=== PATIENT | male | born 1970 | race Caucasian/White ===

== ENCOUNTER 2016-05-20 10:07 | Emergency (ER) | payer OTHER, MEDICAID ==
[2016-05-20 10:20] VITALS: RESP 16; TEMP 97.9
--- NOTE | 2016-05-20 10:53 | CPEKG ---
Heart Rate: 62 RR Interval: 968 P-R Interval: 164 QRSD Interval: 110 QT Interval: 416 QTC Interval: 423 P Wilson: 76 QRS Wilson: 98 T Wave Wilson: 40 EKG Severity - ABNORMAL ECG - EKG Impression: SINUS RHYTHM EKG Impression: NONSPECIFIC INTRAVENTRICULAR CONDUCTION DELAY Electronically Signed By: Ilan Trinh 20-May-2016 15:04:56
[2016-05-20 11:05] LABS: % IMMATURE GRANULYOCYTES 0.4 % (0.0-1.1); ABSOLUTE IMMATURE GRANULOCYTES 0.03 10^3/uL (0.00-0.10); ADD DIFF? NO; ADD MORPH? NO; ADD SCAN? NO; ATYPICAL LYMPHOCYTE FLAG 40 (0-99); FRAGMENT RBC FLAG 0 (0-99); HEMATOCRIT 44.7 % (40.0-51.0); LEFT SHIFT FLG 0 (0-99); LIPEMIA HEMOLYSIS FLAG 90 (0-99); MEAN CELL HEMOGLOBIN 32.9 pg (27.9-34.1); MEAN CELL HEMOGLOBIN CONCENTR. 35.8 g/dL (32.4-36.7); MEAN CELL VOLUME 91.8 fL (81.5-99.8); MEAN PLATELET VOLUME 10.2 fL (8.7-11.7); PLATELET CLUMPS FLAG 10 (0-99); PLATELET COUNT 216 10^3/uL (150-400); RED BLOOD CELL COUNT 4.87 10^6/uL (4.40-6.38)
--- NOTE | 2016-05-20 11:16 | EDPHY ---
H & P Stated Complaint: ABD PAIN Time Seen by Provider: 05/20/16 11:13 - Personal History Current Tetanus/Diphtheria Vaccine: Yes Tetanus Vaccine Date: 2012 - Medical/Surgical History Hx Asthma: No Hx Chronic Respiratory Disease: No Hx Diabetes: No Hx Cardiac Disease: No Hx Renal Disease: No Hx Cirrhosis: No Hx Alcoholism: No Hx HIV/AIDS: No Hx Splenectomy or Spleen Trauma: No Other PMH: SURG NECK FUSION IN CERVICAL AREA. 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 Chronic pain, parsonage puente syndrome - Social History Smoking Status: Former smoker Constitutional: Initial Vital Signs Temperature (C) 36.6 C 05/20/16 10:15 Heart Rate 88 05/20/16 10:15 Respiratory Rate 16 05/20/16 10:15 Blood Pressure 138/98 H 05/20/16 10:15 O2 Sat (%) 96 05/20/16 10:15 O2 Delivery Mode Nasal Cannula O2 (L/minute) 2 Allergies/Adverse Reactions: No Known Allergies Allergy (Verified 11/10/13 14:47) Home Medications: Medication Instructions Recorded Diazepam [Valium 5 MG (*)] 5 mg PO TID PRN 10/26/13 Pregabalin [Lyrica 75mg (*)] 75 mg PO HS 10/26/13 Mirtazapine [Remeron] 15 mg PO HS 01/04/16 Docusate Sodium [Colace 100 MG (*)] 100 mg PO BID #30 cap 01/05/16 Ibuprofen [Motrin (*)] 600 mg PO Q8 #30 tab 01/05/16 Ondansetron Odt [Zofran Odt 4 mg 4 - 8 mg PO Q4 PRN #20 tab 01/05/16 (*)] Zolpidem Tartrate [Ambien 5MG (*)] 5 - 10 mg PO HS PRN #10 tab 01/05/16 oxyCODONE CR [Oxycontin] 10 mg PO BID #30 tab 01/05/16 oxyCODONE IR [Oxycodone Ir (*)] 10 mg PO Q4HRS PRN #60 tab 01/05/16 Medical Decision Making ED Course/Re-evaluation: CHIEF COMPLAINT: "I have a lot of pain throughout my whole body" HISTORY OF PRESENT ILLNESS: The patient is a 45 y/o male, with a history of Parsonage Puente syndrome, complaining of "pain everywhere." He reports he's had sharp epigastric pain that feels like "severe hunger pain, twisting, with sharp needling pain in my bowels" for the past 2 months. His symptoms are associated with loose stools. He also complains of ongoing shoulder pain, worse since a fall at his PT appointment this past week. He has baseline weakness in his left arm and denies changes to this. REVIEW OF SYSTEMS: A 10 point review of systems was performed and is negative with the exception of the elements mentioned in the history of present illness. PHYSICAL EXAM: HR, BP, O2 Sat, RR. Temp noted General Appearance: Alert, well hydrated, appropriate, and non-toxic appearing. Head: Atraumatic without scalp tenderness or obvious injury Eyes: Pupils equal, round, reactive to light and accommodation, EOMI, no trauma , no injection. Ears: Clear bilaterally, no perforation, normal landmarks Nose: Atraumatic, no rhinorrhea, clear. Throat: There is no erythema or exudates, no lesions, normal tonsils, mucus membranes moist. Neck: Supple, 2+ carotid upstroke, nontender, no lymphadenopathy. Respiratory: No retractions, no distress, no wheezes, and no accessory muscle use. Lungs are clear to auscultation bilaterally. Cardiovascular: Regular rate and rhythm, no murmurs, rubs, or gallops. Bilateral carotid, radial, dorsalis pedis, and posterior tibial pulses intact. Good capillary refill all extremities. Gastrointestinal: Abdomen is soft, nontender, non-distended, no masses, no rebound, no guarding, no peritoneal signs. Musculoskeletal: Normal active ROM of all extremities, atraumatic. Neurological: Alert, appropriate, and interactive. The patient has normal DTRs and non-focal cranial nerves, motor, sensory, and cerebellar exam. Baseline left arm weakness. Skin: No rashes, good turgor, no nodules on palpation. Past medical history: Parsonage Puente Syndrome Past surgical history: Pyloric valve replacement, neck fusion 3 years ago Family history: Noncontributory Social history: Dr. Tim Pyle DIAGNOSTICS/PROCEDURES/CRITICAL CARE TIME: The 12 lead EKG was interpreted by myself. EKG shows sinus rhythm rate 62. See hard copy and/or "tracemaster" electronic copy for interpretation. Study: CT of the Abdomen Indication: Pain Results: CT scan of the abdomen was obtained. The results of the study are unremarkable for any acute process The study was read by the radiologist, Dr. Rashad Patterson. I viewed the images myself on the PACS system. DIFFERENTIAL DIAGNOSIS: The differential diagnosis for the patient's abdominal pain included but was not limited to appendicitis, cholecystitis, hernias, testicular torsion, gastritis, and urinary tract infection. MEDICAL DECISION MAKING: This is a 45 y/o male with a history of Parsonage Puente Syndrome complaining primarily of 2 months of abdominal pain. He has not had imaging performed for this complaint yet. His pain is not reproducible on exam. IV established. Labs drawn including CBC, CHEM, lipase, LFTs. 1mg IV Dilaudid administered. Patient placed on radiographer cardiac catheterization. Plan for abdominal CT. This patient has 2 months of intermittent abdominal pain. His laboratory studies including CBC, chemistry, liver, lipase are all unremarkable in addition to his CT scan of the abdomen. He will follow up with his regular doctor. - Data Points Laboratory Results: Laboratory Results 05/20/16 10:20 05/20/16 10:20 05/20/16 10:20 WBC 8.28 10^3/uL (3.80-9.50) RBC 4.87 10^6/uL (4.40-6.38) Hgb 16.0 g/dL (13.7-17.5) Hct 44.7 % (40.0-51.0) MCV 91.8 fL (81.5-99.8) MCH 32.9 pg (27.9-34.1) MCHC 35.8 g/dL (32.4-36.7) RDW 12.0 % (11.5-15.2) Plt Count 216 10^3/uL (150-400) MPV 10.2 fL (8.7-11.7) Neut % (Auto) 60.4 % (39.3-74.2) Lymph % (Auto) 31.0 % (15.0-45.0) [place] % (Auto) 6.8 % (4.5-13.0) Eos % (Auto) 0.8 % (0.6-7.6) Baso % (Auto) 0.6 % (0.3-1.7) Nucleat RBC Rel Count 0.0 % (0.0-0.2) Absolute Neuts (auto) 5.00 10^3/uL (1.70-6.50) Absolute Lymphs (auto) 2.57 10^3/uL (1.00-3.00) Absolute Monos (auto) 0.56 10^3/uL (0.30-0.80) Absolute Eos (auto) 0.07 10^3/uL (0.03-0.40) Absolute Basos (auto) 0.05 10^3/uL (0.02-0.10) Absolute Nucleated RBC 0.00 10^3/uL (0-0.01) Immature Gran % 0.4 % (0.0-1.1) Immature Gran # 0.03 10^3/uL (0.00-0.10) Sodium 142 mEq/L (134-144) Potassium 4.0 mEq/L (3.5-5.2) Chloride 108 mEq/L (97-110) Carbon Dioxide 23 mEq/l (22-31) Anion Gap 11 mEq/L (8-16) BUN 14 mg/dL (7-23) Creatinine 0.8 mg/dL (0.7-1.3) Estimated GFR > 60 Glucose 99 mg/dL (70-100) Calcium 9.2 mg/dL (8.5-10.4) Total Bilirubin 0.8 mg/dL (0.1-1.4) Conjugated Bilirubin 0.3 mg/dL (0.0-0.5) Unconjugated Bilirubin 0.5 mg/dL (0.0-1.1) AST 17 IU/L (17-59) ALT 28 IU/L (21-72) Alkaline Phosphatase 86 IU/L (38-126) Total Protein 7.3 g/dL (6.3-8.2) Albumin 4.2 g/dL (3.5-5.0) Lipase 108.0 IU/L (23-300) Medications Given: Discontinued Medications Hydromorphone HCl (Dilaudid) 1 mg IVP EDNOW ONE Stop: 05/20/16 11:36 Last Admin: 05/20/16 11:40 Dose: 1 mg Departure - Departure Disposition: Home, Routine, Self-Care Clinical Impression: Chronic abdominal pain Condition: Good Instructions: Chronic Abdominal Pain (ED) Referrals: Tim Pyle MD [Primary Care Provider] - As per Instructions Luke Nayak MD [Medical Doctor] - 5-7 days, call for appt. Report Scribed for: Ilan Trinh Report Scribed by: Kimberly Saldaña Date of Report: 05/20/16 Time of Report: 11:29
[2016-05-20 11:21] LABS: ALANINE AMINOTRANSFERASE 28 IU/L (21-72); ALBUMIN 4.2 g/dL (3.5-5.0); ALKALINE PHOSPHATASE 86 IU/L (38-126); ANION GAP 11 mEq/L (8-16); ASPARTATE AMINOTRANSFERASE 17 IU/L (17-59); BILIRUBIN,TOTAL 0.8 mg/dL (0.1-1.4); BILIRUBIN-CONJUGATED 0.3 mg/dL (0.0-0.5); BILIRUBIN-UNCONJUGATED 0.5 mg/dL (0.0-1.1); CALCIUM 9.2 mg/dL (8.5-10.4); CARBON DIOXIDE 23 mEq/l (22-31); CHLORIDE 108 mEq/L (97-110); CREATININE 0.8 mg/dL (0.7-1.3); GLOMERULAR FILTRATION RATE > 60; GLUCOSE 99 mg/dL (70-100); SODIUM 142 mEq/L (134-144); TOTAL PROTEIN 7.3 g/dL (6.3-8.2)
[2016-05-20] MEDS ORDERED: IOPAMIDOL (ISOVUE-300) 100 ML BTL IV ONE (11:31)
[2016-05-20] MEDS ORDERED: HYDROmorphONE/DILAUDID 1 MG/ML SYR IVP ONE (11:35)
[2016-05-20] MEDS ORDERED: HYDROmorphONE/DILAUDID 1 MG/ML SYR ONE (11:36)
[2016-05-20 12:08] VITALS: PULSE 75; O2SAT 96
--- NOTE | 2016-05-20 12:21 | CT ---
CT Scan of the Abdomen and Pelvis (With Contrast) May 20, 2016 at 1154 Hours Indication: Epigastric pain for two months. Technique: 95 mL of Isovue 300 were given intravenously by machine power injection. [facility] was performed from the diaphragm to the symphysis pubis. Dose reduction techniques w ere utilized. Findings Abdomen: Partially calcified round pulmonary nodules seen at the left lower lobe, probably representi ng old granulomatous disease, measuring 9 mm. No evidence for pleural effusion. Liver is unremarkable . Gallbladder is unremarkable. Pancreas is normal in size and appearance. Spleen is unremarkable. Bot h adrenal glands are normal in size and appearance. Both kidneys enhance normally without evidence for mass or hydronephrosis. No significant abdominal l ymphadenopathy. Pelvis: Moderate stool is seen in the colon. Mild diverticulosis in the sigmoid colon without evidenc e for diverticulitis. No CT findings for appendicitis. No evidence for small bowel obstruction. No si gnificant free fluid in the pelvis. Degenerative change is seen in the lumbar spine. Mild chronic ant erior wedge compression deformity is seen of L1, L3, and L4 vertebral bodies. Impression: 1. Moderate constipation. Mild diverticulosis without evidence for diverticulitis. 2. Degenerative change lumbar spine. Mild chronic anterior wedge compression deformity of L1, L3, and L4 vertebral bodies. 3. Probable partial calcified granuloma left lower lobe. Results called to Dr. Ilan Trinh.
[2016-05-20 12:46] VITALS: BP 128/87
== END 2016-05-20 12:45 | disposition home or self-care (01) ==
DX: R10.13 Epigastric pain (principal); G89.29 Other chronic pain; Z87.891 Personal history of nicotine dependence
CPT/HCPCS: 74177; 93005; 96374; 99285; J1170; Q9967

== ENCOUNTER 2016-06-04 12:36 | Day surgery (SDC) | payer OTHER, MEDICAID ==
[2016-06-04] MEDS ORDERED: PROPOFOL/EMULSION 500 MG/50 ML BOTTLE IV ONE (13:28)
[2016-06-04] MEDS ORDERED: LIDOCAINE 2% 5 ML SDV ONE (13:28)
[2016-06-04] MEDS ORDERED: fentaNYL 100 MCG/2 ML INJ ONE (14:38)
[2016-06-04] MEDS ORDERED: DIAZEPAM 5 MG TAB ONE (14:49)
[2016-06-04] MEDS ORDERED: BACLOFEN 10 MG TAB PO ONE (15:00)
--- NOTE | 2016-06-04 23:56 | GPN ---
[f rep st] PROCEDURE NOTE DATE OF PROCEDURE: 06/04/2016 PROCEDURE: Colonoscopy with biopsy. INDICATION: The patient is a 45-year-old male who presents for evaluation of blood in his stool as well as a change in bowel habits. CONSENT: Risks, benefits, and alternatives of the procedure were discussed in great detail with the patient. Risks of infection, bleeding, perforation, and sedation were discussed. All questions were answered and informed consent was obtained. MEDICATIONS: Propofol. Please see anesthesia records for details. ESTIMATED BLOOD LOSS: Insignificant. COLONOSCOPIC EVALUATION: A rectal exam was done and small internal hemorrhoids were felt. The scope was introduced into the rectum and advanced to the cecum, where the ileocecal valve and appendiceal orifice were seen. The terminal ileum was intubated and was normal in appearance. The colonic mucosa was carefully examined both on insertion and withdrawal of the scope. The quality of the prep was good. No mass lesions or polyps were noted. The patient has scattered diverticula throughout the sigmoid to the ascending colon. Random biopsies were taken throughout the colon. IMPRESSION: 1. Scattered diverticulosis. 2. Suspect his bleeding is hemorrhoidal. RECOMMENDATIONS: 1. Follow up on biopsy results. 2. Fiber supplementation. 3. Follow up in the office in 6 weeks. 4. Continue antispasmodic. /[id number]/MODL MTDD
--- NOTE | 2016-06-04 23:56 | GPN ---
[f rep st] PROCEDURE NOTE DATE OF PROCEDURE: 06/04/2016 PROCEDURE: Esophagogastroduodenoscopy with biopsy. INDICATION: The patient is a 45-year-old male who presents for evaluation of epigastric abdominal pain as well as a change in bowel habits. He presents for further evaluation. CONSENT: Risks, benefits, and alternatives of the procedure were discussed in great detail with the patient. Risk of infection, bleeding, perforation, and sedation were discussed. All questions answered. Informed consent obtained. MEDICATIONS: Propofol. Please see Anesthesiology record for details. ESTIMATED BLOOD LOSS: Insignificant. ESOPHAGOGASTRODUODENOSCOPY EXAMINATION: The Olympus upper endoscope was introduced into the mouth and advanced to the esophagus. The proximal, mid and distal esophagus were normal in appearance. The stomach was entered and closely examined, including retroflexed view of the angularis, cardia, and fundus. The patient was noted to have a small hiatal hernia. The mucosa of the whole examined stomach was erythematous in a patchy distribution and biopsies were taken. The duodenal bulb and 2nd portion of the duodenum were normal in appearance. Biopsies were taken to rule out celiac sprue. IMPRESSION: 1. No obvious cause of his abdominal pain noted. 2. Gastritis, status post biopsy. 3. Biopsy for celiac sprue. RECOMMENDATIONS: 1. Follow up on biopsy results. 2. Proceed with colonoscopy. 3. Continue trial of PPI therapy and antispasmodic. 4. More recommendations on colonoscopy report. /[id number]/MODL MTDD
== END 2016-06-04 16:10 | disposition home or self-care (01) ==
LOC: FSGY 12:36
PROVIDERS: ATTEND Internal Medicine Gastroenterology
PROC: 0DB68ZX Excision of Stomach, Via Natural or Artificial Opening Endoscopic, Diagnostic (ICD-10-PCS; principal; 2016-06-04 14:00)
PROC: 0DB98ZX Excision of Duodenum, Via Natural or Artificial Opening Endoscopic, Diagnostic (ICD-10-PCS; principal; 2016-06-04 14:00)
PROC: 0DBE8ZX Excision of Large Intestine, Via Natural or Artificial Opening Endoscopic, Diagnostic (ICD-10-PCS; principal; 2016-06-04 14:00)
DX: R10.13 Epigastric pain (principal); R19.4 Change in bowel habit; K92.1 Melena; K57.30 Diverticulosis of large intestine without perforation or abscess without bleeding
CPT/HCPCS: J2704; J3010

== ENCOUNTER 2016-08-10 10:42 | Emergency (ER) | payer OTHER, MEDICAID ==
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
[2016-08-10] MEDS ORDERED: HYDROmorphONE/DILAUDID 1 MG/ML SYR ONE (11:10)
[2016-08-10] MEDS ORDERED: HYDROmorphONE/DILAUDID 1 MG/ML SYR IVP ONE ×3 (11:15→15:08)
[2016-08-10] MEDS ORDERED: DIAZEPAM 10 MG/2 ML SYR IVP ONE ×3 (11:53→15:08)
[2016-08-10] MEDS ORDERED: DIAZEPAM 10 MG/2 ML SYR ONE (15:02)
[2016-08-10 17:32] VITALS: BP 126/96; PULSE 74; RESP 18; TEMP 98.4; O2SAT 97
== END 2016-08-10 17:30 | disposition home or self-care (01) ==
LOC: EDUNIT#
DX: S19.9XXA Unspecified injury of neck, initial encounter (principal); M48.02 Spinal stenosis, cervical region; Z87.891 Personal history of nicotine dependence; W18.09XA Striking against other object with subsequent fall, initial encounter
CPT/HCPCS: 72141; 96374; 96375; 96376; 99285; J1170

== ENCOUNTER 2017-01-14 12:40 | Emergency (ER) | payer OTHER, MEDICAID ==
[2017-01-14 12:45] VITALS: RESP 18; TEMP 98.2
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
[2017-01-14] MEDS ORDERED: IOPAMIDOL (ISOVUE 370) 100 ML BTL IV ONE (13:16)
[2017-01-14] MEDS ORDERED: HYDROmorphONE/DILAUDID 1 MG/ML INJ IVP ONE (14:51)
[2017-01-14] MEDS ORDERED: DIAZEPAM 10 MG/2 ML SYR IVP ONE (14:51)
[2017-01-14 18:07] VITALS: BP 138/84; PULSE 64; O2SAT 96
== END 2017-01-14 18:31 | disposition home or self-care (01) ==
LOC: EDUNIT#
DX: S16.1XXA Strain of muscle, fascia and tendon at neck level, initial encounter (principal); S20.211A Contusion of right front wall of thorax, initial encounter; Z87.891 Personal history of nicotine dependence; V00.818A Other accident with wheelchair (powered), initial encounter
CPT/HCPCS: 82947-QW; 96374; J1170; Q9967

== ENCOUNTER 2017-07-30 23:31 | Emergency (ER) | payer OTHER, MEDICAID ==
--- NOTE | 2017-07-30 23:36 | EDPHY ---
H & P Time Seen by Provider: 07/30/17 23:36 HPI/ROS: HPI CHIEF COMPLAINT: Alcohol intoxication, fall HISTORY OF PRESENT ILLNESS: Patient 46-year-old male, he has a history of spinal stenosis and cervical fusion, presents emergency room by EMS after he took a fall at home. The reports that he bent over to get the remote off the ground fell forward. She reports that he had alcohol this evening multiple glasses of wine. EMS evaluated and brought him here to the emergency room. Upon arrival to the emergency room the patient is screaming and yelling at staff , he is telling people to "Fuck off" he somewhat agitated and aggressive with staff as well as nursing staff as well as security. Upon arrival he has an atraumatic exam, GCS 15 but agitated and aggressive. Intoxicated. Smells of alcohol. Past Medical History: Chronic neck and back pain, spinal stenosis, cervical fusion Past Surgical History: Cervical fusion anterior and posterior Social History: Smokes marijuana, lives locally, alcohol this evening Family History: Noncontributory ROS REVIEW OF SYSTEMS: Somewhat limited due to alcohol intoxication and aggressive behavior Exam Constitutional agitated, aggressive, yelling, intoxicated triage nursing summary reviewed, vital signs reviewed, awake/alert. Eyes normal conjunctivae and sclera, EOMI, PERRLA. HENT head/neck atraumatic exam, cervical fusion anterior and posterior incision lines, no midline cervical spine pain or step-offs, head is atraumatic exam moist mucus membranes, no epistaxis, neck supple/ no meningismus, no raccoon eyes. Respiratory clear to auscultation bilaterally, normal breath sounds, no respiratory distress, no wheezing. Cardiovascular rate normal, regular rhythm, no murmur, no edema, distal pulses normal. Gastrointestinal soft, non-tender, no rebound, no guarding, normal bowel sounds, no distension, no pulsatile mass. Genitourinary no CVA tenderness. Musculoskeletal no midline vertebral tenderness, full range of motion, no calf swelling, no tenderness of extremities, no meningismus, good pulses, neurovascularly intact. Skin pink, warm, & dry, no rash, skin atraumatic. Neurologic intoxicated, awake, alert and oriented x 3, AAOx3, moves all 4 extremities equally, motor intact, sensory intact, CN II-XII intact, normal cerebellar, normal vision, normal speech. Psychiatric agitated intoxicated Heme/Lymph/Immune no lymphadenopathy. Differential Diagnosis: Includes but is not limited to in a particular order acute alcohol intoxication, acute acute on chronic pain, injury from fall, subdural, traumatic subarachnoid, epidural, multiple contusions, C-spine contusion, fracture Medical Decision Making: Plan for this patient given his alcohol intoxication aggressive behavior will attempt to get a CT head and cervical spine to rule out significant trauma from his fall. Re-evaluation: 1214AM: Patient returned from CT and I was asked by nursing staff as well as congregational care pastor to evaluate him as he did not appear to be responding when brought back from CT. He was placed on a security monitor with normal pulse ox, normal heart rate, he had normal eyelash reflex, he responded to his sternal rub. He immediately opened his eyes and asked where he was. There was no seizure activity, he never lost pulse. He was breathing the entire time. It is unclear what these events were. There was no seizure activity. He woke up asking where he was. No complaints, denies CP or SOB. or BOUCHER or neck Pain. 1222: Serum alcohol 236. CT head/neck negative for acute traumatic injury: No evidence of bleed or significant malalignment. However the scans were limited by motion. Multiple attempts were made by CT to perform scans with extensive conversation with the patient of trying to sit still however patient would not sit still. The CT scans have been reviewed by Dr. Arden Figueredo. No evidence of gross bleed or malalignment. 1227: Patient is intoxicated with alcohol. Will continue to monitor him here in the emergency room once sober will reassess. 0137AM: Patient is sitting on the edge of the bed his was at bedside. He leaned over the edge of the bed and then fell onto the ground. This was unwitnessed by medical staff. We did go and evaluate him. He is now back in bed. His reports that he was sitting on the edge of the bed and then fell to the ground. Unclear if he had head strike. No evidence of trauma on exam head or neck. 0233: Additionally patient's blood work no noted drug screen positive for benzos and marijuana. Alcohol level 236. 0330AM: Patient notified staff that he is going to leave. He did not want stay for discharge paperwork have further discussion with me. He walked out of the emergency room. at bedside walked out with him according to Nursing Staff (I was in a different patient's room when patient walked out) This patient initially arrived after falling at home. He initially came in highly intoxicated with alcohol and very abusive verbally and aggressive with staff yelling at people and somewhat getting agitated. Made multiple attempts to perform CT imaging given that he fell and has a cervical fusion. He had a CT scan of his head and neck that did not show any significant acute trauma however was limited due to motion artifact. He did ambulate well to the bathroom with out any significant assistance. He did sober up here in the emergency room. Still during the course of the emergency room visit he was aggressive and angry and at times yelling at staff. Patient left on his own accord after notified nursing staff that he wanted to go and just left. I was unable to talk to him prior to him leaving. Patient left AMA without Paperwork. Source: Patient, EMS - Personal History Tetanus Vaccine Date: 2012 - Medical/Surgical History Hx Asthma: No Hx Chronic Respiratory Disease: No Hx Diabetes: No Hx Cardiac Disease: No Hx Renal Disease: No Hx Cirrhosis: No Hx Alcoholism: No Hx HIV/AIDS: No Hx Splenectomy or Spleen Trauma: No Other PMH: 1. Cervical fusions. 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 4. Meniere's disease. 5. Chronic pain. 6. Diverticulitis. - Social History Smoking Status: Former smoker Constitutional: Initial Vital Signs Temperature (C) 37.0 C 07/30/17 23:38 Heart Rate 127 H 07/30/17 23:38 Respiratory Rate 18 07/30/17 23:38 Blood Pressure 191/182 H 07/30/17 23:38 O2 Sat (%) 95 07/30/17 23:38 O2 Delivery Mode Room Air Allergies/Adverse Reactions: No Known Allergies Allergy (Verified 06/01/16 15:11) Home Medications: Medication Instructions Recorded Diazepam [Valium 5 MG (*)] 5 mg PO TID PRN 10/26/13 Baclofen 06/01/16 Dicyclomine 08/10/16 Omeprazole 08/10/16 oxyCODONE/APAP 5/325 [Percocet 1 - 2 tab PO Q4H PRN #10 tab 08/10/16 5/325 (*)] Medical Decision Making - Diagnostics Imaging Results: Imaging Impressions Cervical Spine CT 07/30/17 23:44 Impression: Motion limited study with no gross acute posttraumatic abnormality identified. If pain persists and clinical suspicion warrants, when the patient is able to cooperate, repeat study could be considered. Findings discussed with Harris Hutchins MD 07/31/2017 at 0:24. Head CT 07/30/17 23:44 Impression: Nondiagnostic motion limited study with no gross abnormality. Findings discussed with Harris Hutchins MD 07/31/2017 at 0:24. - Data Points Laboratory Results: Laboratory Results 07/30/17 23:30 07/30/17 23:30 07/31/17 07/30/17 07/30/17 01:25 23:30 23:30 WBC 10.72 10^3/uL H 10^3/uL (3.80-9.50) RBC 5.32 10^6/uL 10^6/uL (4.40-6.38) Hgb 17.2 g/dL g/dL (13.7-17.5) Hct 49.1 % % (40.0-51.0) MCV 92.3 fL fL (81.5-99.8) MCH 32.3 pg pg (27.9-34.1) MCHC 35.0 g/dL g/dL (32.4-36.7) RDW 11.8 % % (11.5-15.2) Plt Count 245 10^3/uL 10^3/uL (150-400) MPV 10.3 fL fL (8.7-11.7) Neut % (Auto) 57.5 % % (39.3-74.2) Lymph % (Auto) 35.3 % % (15.0-45.0) Ponce % (Auto) 5.5 % % (4.5-13.0) Eos % (Auto) 0.7 % % (0.6-7.6) Baso % (Auto) 0.6 % % (0.3-1.7) Nucleat RBC Rel Count 0.0 % % (0.0-0.2) Absolute Neuts (auto) 6.17 10^3/uL 10^3/uL (1.70-6.50) Absolute Lymphs (auto) 3.78 10^3/uL H 10^3/uL (1.00-3.00) Absolute Monos (auto) 0.59 10^3/uL 10^3/uL (0.30-0.80) Absolute Eos (auto) 0.08 10^3/uL 10^3/uL (0.03-0.40) Absolute Basos (auto) 0.06 10^3/uL 10^3/uL (0.02-0.10) Absolute Nucleated RBC 0.00 10^3/uL 10^3/uL (0-0.01) Immature Gran % 0.4 % % (0.0-1.1) Immature Gran # 0.04 10^3/uL 10^3/uL (0.00-0.10) Sodium 156 mEq/L H mEq/L (135-145) Potassium 4.6 mEq/L mEq/L (3.5-5.2) Chloride 115 mEq/L H mEq/L (97-110) Carbon Dioxide 20 mEq/l L mEq/l (22-31) Anion Gap 21 mEq/L H mEq/L (8-16) BUN 13 mg/dL mg/dL (7-23) Creatinine 0.8 mg/dL mg/dL (0.7-1.3) Estimated GFR > 60 Glucose 107 mg/dL H mg/dL (70-100) Calcium 9.9 mg/dL mg/dL (8.5-10.4) Urine Opiates Screen NEGATIVE (NEGATIVE) Urine Barbiturates NEGATIVE (NEGATIVE) Ur Phencyclidine Scrn NEGATIVE (NEGATIVE) Ur Amphetamine Screen NEGATIVE (NEGATIVE) U Benzodiazepines Scrn NON-NEGATIVE H (NEGATIVE) Urine Cocaine Screen NEGATIVE (NEGATIVE) U Marijuana (THC) Screen NON-NEGATIVE H (NEGATIVE) Ethyl Alcohol 07/30/17 23:30 WBC RBC Hgb Hct MCV MCH MCHC RDW Plt Count MPV Neut % (Auto) Lymph % (Auto) Ponce % (Auto) Eos % (Auto) Baso % (Auto) Nucleat RBC Rel Count Absolute Neuts (auto) Absolute Lymphs (auto) Absolute Monos (auto) Absolute Eos (auto) Absolute Basos (auto) Absolute Nucleated RBC Immature Gran % Immature Gran # Sodium Potassium Chloride Carbon Dioxide Anion Gap BUN Creatinine Estimated GFR Glucose Calcium Urine Opiates Screen Urine Barbiturates Ur Phencyclidine Scrn Ur Amphetamine Screen U Benzodiazepines Scrn Urine Cocaine Screen U Marijuana (THC) Screen Ethyl Alcohol 236 mg/dL H mg/dL (0-10) Medications Given: Discontinued Medications Sodium Chloride (Ns) 1,000 mls @ 0 mls/hr IV ONCE ONE PRN Reason: Wide Open Stop: 07/30/17 23:45 Last Admin: 07/30/17 23:53 Dose: 1,000 mls Ondansetron HCl (Zofran) 4 mg IVP EDNOW ONE Stop: 07/31/17 01:40 Last Admin: 07/31/17 01:41 Dose: 4 mg Departure - Departure Disposition: Against Medical Advice Clinical Impression: Alcohol intoxication Qualifiers: Complication of substance-induced condition: uncomplicated Qualified Code(s): F10.920 - Alcohol use, unspecified with intoxication, uncomplicated Condition: Good Instructions: Alcohol Intoxication (ED) Referrals: Patient,NotPresent [Unknown] - As per Instructions
[2017-07-30] MEDS ORDERED: NS 1,000 ML IV ONE (23:44)
[2017-07-31 00:52] LABS: PLATELET COUNT 245 10^3/uL (150-400)
[2017-07-31] MEDS ORDERED: ONDANSETRON 4 MG/2 ML VIAL ONE (01:38)
[2017-07-31] MEDS ORDERED: ONDANSETRON 4 MG/2 ML VIAL IVP ONE (01:39)
[2017-07-31 03:50] VITALS: BP 134/82
== END 2017-07-31 03:52 | disposition left against medical advice (07) ==
LOC: EDUNIT# → EDBD
DX: F10.920 Alcohol use, unspecified with intoxication, uncomplicated (principal); Z87.891 Personal history of nicotine dependence
CPT/HCPCS: 70450; 72125; 96361; 96374; 99285; J2405; 80305; G0480